=== PATIENT | female | born 1995 | race Caucasian/White ===

== ENCOUNTER 2021-01-03 15:56 | Emergency (ER) | payer BC, OTHER | END 2021-01-03 17:02 | disposition left against medical advice (07) | LOC: JP.ED 15:56 | DX: M79.89 Other specified soft tissue disorders (principal); Z53.21 Procedure and treatment not carried out due to patient leaving prior to being seen by health care provider ==

== ENCOUNTER 2022-08-15 18:03 | Emergency (ER) | payer BC, OTHER ==
[2022-08-15] MEDS ORDERED: Ketorolac 30 MG/ML SDV IM ONE (18:25)
== END 2022-08-15 19:37 | disposition home or self-care (01) ==
LOC: JP.ED 18:03
DX: N80.C0 Endometriosis of the abdomen, unspecified (principal); Z72.0 Tobacco use
CPT/HCPCS: 81025; 96372; 99283; 99284; J1885

== ENCOUNTER 2022-11-12 12:57 | Emergency (ER) | payer BC, MEDICAID | END 2022-11-12 13:50 | disposition left against medical advice (07) | LOC: JP.ED 12:57 | DX: Z53.21 Procedure and treatment not carried out due to patient leaving prior to being seen by health care provider (principal) ==

== ENCOUNTER 2024-08-08 17:36 | Emergency (ER) | payer MEDICAID ==
[2024-08-08] MEDS: Bacitracin Oint 1 GM U/D Packet TOP ONE (19:23)
[2024-08-08] MEDS: Lidocaine 1% with EPINEPHrine 1:100,000 20 ML MDV INJECT ONE (19:23)
== END 2024-08-08 20:33 | disposition home or self-care (01) ==
LOC: JP.ED 17:36
DX: S61.412A Laceration without foreign body of left hand, initial encounter (principal); W25.XXXA Contact with sharp glass, initial encounter
CPT/HCPCS: 12002; 73130; 99283; J2004